=== PATIENT | female | born 1955 | race Caucasian/White ===

== ENCOUNTER → 2018-12-26 16:49 | Outpatient (CLI) | payer MEDICARE, MEDICAID, SELFPAY ==
[2018-12-26 17:29] LABS: Basophils # 0.1 K/mm3 (0-0.2); Basophils % 0.5 % (0.1-2.0); Eosinophils # 0.1 K/mm3 (0.0-0.4); Hematocrit 45.2 % (37.0-47.0); Hemoglobin 14.6 g/dL (12.2-16.2); Lymphocytes # 2.6 K/mm3 (0.7-4.5); Lymphocytes % 28.3 % (10-50); Mean Corpuscular HGB Conc 32.2 g/dL (31.8-35.4); Mean Corpuscular Hemoglobin 29.2 pg (27.0-31.2); Mean Corpuscular Volume 90.7 fl (81-99); Mean Platelet Volume 8.5 fl (7.4-10.4); Monocytes # 0.5 K/mm3 (0.1-1.0); Monocytes % 5.7 % (1.7-9.3); Neutrophils % 64.5 % (37.0-80.0); Platelet Count 305 K/mm3 (142-424); Red Blood Count 4.99 M/mm3 (4.20-5.40); Red Cell Distribution Width 13.5 % (11.5-17.5); White Blood Count 9.3 K/mm3 (4.8-10.8)
[2018-12-26 18:23] LABS: Alanine Aminotransferase 25 U/L (12-78); Albumin Level 3.8 gm/dL (3.4-5.0); Albumin/Globulin Ratio 1.3 (1.1-1.8); Alkaline Phosphatase 102 U/L (46-116); Anion Gap 11.4 mEq/L (5-15); Aspartate Amino Transferase 16 U/L (15-37); Bilirubin,Total 0.2 mg/dL (0.2-1.0); Blood Urea Nitrogen 12 mg/dL (7-18); Calcium 8.9 mg/dL (8.5-10.1); Carbon Dioxide 28 mmol/L (21.0-32.0); Chloride 104 mmol/L (98-107); Chol/HDL Ratio 2.6 (1-3.5); Cholesterol 210 mg/dL (140-200); Creatinine,Serum 0.71 mg/dL (0.55-1.02); Estimated Glomerular Filt Rate 84 ml/min (>60); GFR (African American) 101 ML/MIN (>60); Globulin 2.9 gm/dl (1.3-3.2); Glucose 90 mg/dL (74-106); HDL Cholesterol 80 mg/dL (29-89); LDL Cholesterol 101 mg/dL (0-130); Potassium 4.4 mmoL/L (3.5-5.1); Sodium 139 mmol/L (136-145); T4 (Thyroxine) 8.2 ug/dl (4.7-13.3); Thyroid Stimulating Hormone 1.28 uIU/ml (0.358-3.740); Total Protein,Serum 6.7 gm/dL (6.4-8.2); Triglycerides 144 mg/dL (30-200); VLDL Cholesterol 29 mg/dL (0-40)
[2018-12-28 11:21] LABS: Vitamin D 25 Hydroxy 25.2 ng/mL (30.0-100.0)
== END ==
PROVIDERS: Visit Provider Emergency Medicine
DX: F41.9 Anxiety disorder, unspecified (principal); M54.9 Dorsalgia, unspecified; I10 Essential (primary) hypertension; E55.9 Vitamin D deficiency, unspecified
CPT/HCPCS: 80053; 80061; 82652; 84436; 84443; 85025

== ENCOUNTER → 2019-01-09 07:50 | Outpatient (CLI) | payer MEDICARE, MEDICAID, SELFPAY ==
--- NOTE | 2019-01-09 07:52 | MR_ITS ---
PROCEDURE: MR LUMBAR SPINE WO CON CLINICAL INDICATION: Back pain Low back pain, right-sided low back pain with intermittent right leg pain and numbness and tingling COMPARISON: No exams were available for comparison TECHNIQUE: Standard multiplanar multiecho sequences are performed without contrast. 3-D MIP and myelographic images are also rendered and reviewed FINDINGS: There is normal alignment. The spinal cord ends at the L1 level. L1-L2: Mild concentric bulging disc with facet and ligamentum hypertrophy. L2-L3: Mild facet ligamentum hypertrophy. L3-L4: Unremarkable. L4-5: Degenerative disc disease with bulging disc with facet and ligamentum hypertrophy with bilateral lateral recess narrowing and moderate bilateral foraminal narrowing. Anterior bridging osteophytes are present at this level. L5-S1: Mild facet and ligamentum hypertrophy. There is moderate bilateral foraminal narrowing. No canal stenosis or extruded herniated disc evident. IMPRESSION: 1. Mild multilevel degenerative changes as described above with facet and ligamentum hypertrophy. 2. L4-5: Degenerative disc disease with bulging disc with facet and ligamentum hypertrophy with bilateral lateral recess narrowing and moderate bilateral foraminal narrowing. Anterior bridging osteophytes are present at this level. 3. L5-S1: Mild facet and ligamentum hypertrophy. There is moderate bilateral foraminal narrowing. 4. No canal stenosis or extruded herniated disc evident. Dictated by: Eligio Sheldon MD 01/10/2019 11:54 Electronically signed by Eligio Sheldon MD in [place] 01/10/2019 11:54
== END ==
PROVIDERS: PCP Emergency Medicine; Visit Provider Emergency Medicine
DX: M54.9 Dorsalgia, unspecified (principal); M54.5 Low back pain
CPT/HCPCS: 72148; 76376

== ENCOUNTER 2020-06-19 08:48 | Emergency (ER) | payer MEDICARE, SELFPAY ==
[2020-06-19 08:50] VITALS: BP 143/81; PULSE 82; RESP 16; TEMP 36.7; O2SAT 97; BMI 25.8
[2020-06-19 09:13] VITALS: BP 191/116; PULSE 68; O2SAT 96
--- NOTE | 2020-06-19 09:13 | XR_ITS ---
PROCEDURE: XR HIP LT 2-3V W/PELVIS CLINICAL INDICATION: LEFT HIP PAIN COMPARISON: No exams were available for comparison FINDINGS: The bony structures are intact, well-aligned, and normally mineralized. Minor subchondral sclerosis is noted. The joint spaces are preserved. No soft tissue calcifications are noted. IMPRESSION: No acute findings. Dictated by: Diana Ruff 06/19/2020 10:06 Diana Ruff in [place] 06/19/2020 10:06
--- NOTE | 2020-06-19 09:13 | XR_ITS ---
PROCEDURE: XR LUMBAR SPINE 2-3V CLINICAL INDICATION: LOWER BACK PAIN COMPARISON: No exams were available for comparison FINDINGS: No acute fractures or listhesis. Bone density is normal. Multilevel degenerative changes of the lumbar spine with endplate sclerosis, loss of disc height, facet joint arthropathy and anterior osteophyte formation. Vascular calcification is noted. IMPRESSION: No acute fractures or listhesis. Degenerative changes of the lumbar spine. Dictated by: Diana Ruff 06/19/2020 10:05 Diana Ruff in [place] 06/19/2020 10:05
--- NOTE | 2020-06-19 09:18 | HMH.EDGENADL ---
ED Disposition Clinical Impression: Low back pain Qualifiers: Chronicity: acute Back pain laterality: left Sciatica presence: without sciatica Qualified Code(s): M54.5 - Low back pain Disposition: Home, Self-Care Condition on Discharge: Good Instructions: DI Sacroiliac Joint Dysfunction, DI for Low Back Pain Additional Instructions: Prednisone as prescribed. Percocet as needed for pain. Follow-up with Dr. Griffin in the office, call today to make appointment. Additional instructions for CONTROLLED SUBSTANCES: You have been prescribed a medication that is a controlled substance. Controlled substances include pain medications known as opiates and sedative nerve medications known as benzodiazepines. Tramadol, fioricet, and gabapentin are also controlled substances. Some common opiates include: Codeine (such as Tylenol #3) Hydrocodone (Vicodin, Lortab, Lorcet, [place]) Oxycodone (Percocet, Percodan, Oxycodone, Oxy IR) Some common benzodiazepines include: Diazepam (Valium) Lorazepam (Ativan) Alprazolam (Xanax) Clonazepam (Klonopin) Oxazepam (Serax) All of these controlled substances are highly addictive and frequently abused. Misuse can and frequently does lead to addiction as well as overdose and . Medication should be stored in a locked cabinet or other secure storage unit. Do not store the medication in a motor vehicle. Short term supplies, 3 days or less, are prescribed because of the highly addictive nature of the medication. Any of the controlled substance medication NOT taken should be disposed of properly and NOT SAVED. The recommended method of disposing of unused medications is: Place the medicines in a sealable plastic bag. If the medicine is a solid, crush it or add water to dissolve it. Add something undesirable (cat litter, coffee grounds, etc.) Dispose of sealed bag in household trash Do not flush or pour unused medicines down a sink or drain. Controlled substances should not be shared, given away or sold. Because of the addictive nature and frequent abuse, these medications are sometimes stolen. These medications should be kept in a safe place where they cannot be stolen. Do not keep them in your car or purse. Lost or stolen prescriptions for controlled substances WILL NOT BE REFILLED in this emergency department, regardless of whether a police report was filed. Prescriptions: Oxycodone HCl/Acetaminophen [Percocet 5/325mg tablet] 1 tab PO Q6HP PRN #10 tablet PRN Reason: Moderate To Severe Pain Transmission Status: Sent to [facility] predniSONE [Prednisone 20mg Tab] 20 mg PO BID #10 tab Transmission Status: Pending to [facility] Referrals: Provider,Referral, MD [Primary Care Provider] - - Critical Care Critical Care Time: No Attestation: On 06/19/20, the high probability of a clinically significant, sudden or life threatening deterioration of the following system(s) required my full and direct attention, intervention and personal management. The time I documented below is in addition to time spent performing reported procedures but includes the following listed in this critical care notation. Medical Decision Making - Medical Records Medical records reviewed: Yes: I reviewed the patient's medical records. MR Comment: prior MRI result LS spine, see below - Ricardo Inquiry Pt receiving controlled substance: Yes Ricardo was queried for this patient: Yes Risks and benefits of using a controlled substance: were discussed with pt by me Vital Signs: 06/19/20 08:50 06/19/20 09:13 Temperature 98.0 F Temperature Source Oral Pulse Rate 68 Pulse Rate [Right] 82 Respiratory Rate 16 Blood Pressure 191/116 H Blood Pressure [Right Arm] 143/81 H Blood Pressure Mean 133 Blood Pressure Mean [Right Arm] 101 02 Sat by Pulse Oximetry 97 96 Oxygen Delivery Method Room Air Orders (Tests/Meds): ED MEDICATIONS Discontinued Medications
[2020-06-19 09:45] VITALS: BP 175/122
[2020-06-19 10:00] VITALS: BP 156/88; PULSE 89; RESP 16; TEMP 36.8; O2SAT 98
[2020-06-19 10:06] VITALS: BP 166/111
--- NOTE | 2020-06-19 10:09 | PC.NURSE ---
Family present with pt
== END 2020-06-19 10:33 | disposition home or self-care (01) ==
PROVIDERS: Emergency Provider Emergency Medicine
DX: M54.42 Lumbago with sciatica, left side (principal); F41.8 Other specified anxiety disorders; F17.210 Nicotine dependence, cigarettes, uncomplicated; Z88.0 Allergy status to penicillin; Z88.2 Allergy status to sulfonamides
CPT/HCPCS: 72100; 73502; 99282; J2405

== ENCOUNTER 2020-08-28 18:15 | Emergency (ER) | payer MEDICARE, SELFPAY ==
[2020-08-28 18:48] VITALS: BP 167/100; PULSE 81; RESP 16; TEMP 36.8; O2SAT 98; BMI 26.2
--- NOTE | 2020-08-28 19:10 | HMH.EDEYEP ---
ED Disposition Clinical Impression: Bacterial conjunctivitis Corneal abrasion Qualifiers: Encounter type: initial encounter Laterality: left Qualified Code(s): S05.02XA - Injury of conjunctiva and corneal abrasion without foreign body, left eye, initial encounter Disposition: Home, Self-Care Condition on Discharge: Good Instructions: DI for Conjunctivitis Prescriptions: Erythromycin Base [Erythromycin 3.5gm opth oinment] 1 applic OP QID 5 Days #3.5 oint...g. Transmission Status: Pending to [facility] Referrals: Provider,Referral, [Primary Care Provider] - - Critical Care Critical Care Time: No Attestation: On 08/28/20, the high probability of a clinically significant, sudden or life threatening deterioration of the following system(s) required my full and direct attention, intervention and personal management. The time I documented below is in addition to time spent performing reported procedures but includes the following listed in this critical care notation. Medical Decision Making - Medical Records Medical records reviewed: Yes: I reviewed the patient's medical records. - Ricardo Inquiry Pt receiving controlled substance: No Vital Signs: 08/28/20 18:48 Temperature 98.3 F Temperature Source Oral Pulse Rate [Right] 81 Respiratory Rate 16 Blood Pressure [Right Arm] 167/100 H Blood Pressure Mean [Right Arm] 122 02 Sat by Pulse Oximetry 98 Oxygen Delivery Method Room Air - Reevaluation(s) Time: 19:12 Reevaluation #1: On reexamination, the patient is feeling much better. Figueroa lamp did show some small corneal abrasions. Findings are consistent with conjunctivitis. Patient be discharged on short course antibiotics. Needs a follow-up ophthalmology. Given strict return precautions. Verbalized understanding. Medical Decision Narrative: Is a 64-year-old female presented to the emergency department with some left pain and redness. Findings are consistent with conjunctivitis. Patient will require Figueroa lamp examination. Eye Problem HPI - General Chief complaint: Eye Problems Stated complaint: EYE INFECTION Time Seen by Provider: 08/28/20 18:55 Mode of Arrival: Family Vehicle Limitations: No Limitations Description of Symptoms (Recalled from ER Triage Doc. by RN): Patient c/o left eye redness and drainage in the last two weeks. Patient reports the drainage is greenish in color. Patient reports she has chronic dry eye and has been rubbing her left eye frequently in the last two weeks. - History of Present Illness HPI Narrative: 64-year-old female presented to the emergency department with some left-sided eye pain as well as some redness. The patient has had this for the last 3 days. She started having some discharge of the last 2 days as well. Been green in nature. Patient dates that she wakes up in the morning and her eye is crusted shut. She feels like her eyes very itchy. She has been scratching it. She denies any change in vision. She is not having any fever or chills. No chest pain or shortness of breath. Abdominal pain or vomiting. No diarrhea. No headache, no change in vision, no focal weakness. - Related Data Previous Rx's Medication Instructions Recorded Oxycodone HCl/Acetaminophen 1 tab PO Q6HP PRN #10 tab 06/19/20 [Percocet 5/325mg tablet] predniSONE [Prednisone 20mg 20 mg PO BID #10 tab 06/19/20 Tab] Erythromycin Base [Erythromycin 1 applic OP QID 5 Days #3.5 08/28/20 3.5gm opth oinment] oint...g. Allergies Allergy/AdvReac Type Severity Reaction Status Date / Time Penicillins Allergy Mild Rash Verified 01/23/19 16:18 acetaminophen [From Vicodin] AdvReac Intermediate Vomiting Verified 01/23/19 16:18 aspirin AdvReac Intermediate Vomiting Verified 01/23/19 16:18 hydrocodone [From Vicodin] AdvReac Intermediate Vomiting Verified 01/23/19 16:18 [facility] History - Hepatitis A Screen Drug use history?: No High risk sexual behaviors?:
[2020-08-28 19:22] VITALS: BP 152/92; PULSE 84; RESP 18; TEMP 36.8; O2SAT 98
== END 2020-08-28 19:25 | disposition home or self-care (01) ==
LOC: UTC 18:24 → ER 18:42
PROVIDERS: Emergency Provider Emergency Medicine
DX: S05.02XA Injury of conjunctiva and corneal abrasion without foreign body, left eye, initial encounter (principal); H10.32 Unspecified acute conjunctivitis, left eye; F41.8 Other specified anxiety disorders; F17.210 Nicotine dependence, cigarettes, uncomplicated; Z88.0 Allergy status to penicillin
CPT/HCPCS: 99281